=== PATIENT | female | born 1955 | race Caucasian/White ===

== ENCOUNTER 2017-03-15 10:27 | Emergency (ER) | payer OTHER, MEDICARE ==
[~2017-03-15] VITALS: Ht 152.4 cm; Wt 124.3 kg
[2017-03-15 10:27] VITALS: BP 198/91; PULSE 76; RESP 17; TEMP 97.6; O2SAT 96
--- NOTE | 2017-03-15 10:27 | NUR ---
Patient to ER bed 2 to gown for evaluation. Side rails up. Report given to Brandy DURAN.
--- NOTE | 2017-03-15 10:28 | NUR ---
ER at bedside examining patient.
--- NOTE | 2017-03-15 10:28 | NUR ---
Placed on media monitor, blood pressure machine and pulse oximeter. To gown for exam. Side rails up.
[2017-03-15] MEDS ORDERED: NITROGLYCERIN 1 INCH (GM) OINT. TP ONE (10:45)
--- NOTE | 2017-03-15 11:05 | NUR ---
brought in by [facility], c/o chest pain radiating to left arm ,intermittent,sharp pain for three days. awake,alerted,oriented x4. chest pain 8/. wearing a boot brace to left leg,had left ankle fx due to the fall 4 months ago.
--- NOTE | 2017-03-15 11:07 | NUR ---
transported to radiology for [facility] via [facility].
[2017-03-15 11:09] LABS: BASOPHILS % (AUTO) 0.4 % (0.0-2.0); EOSINOPHILS # (AUTO) 0.2 K/uL (0.0-0.4); EOSINOPHILS % (AUTO) 2.1 % (0.0-4.0); HEMATOCRIT 32.3 % (36-48); HEMOGLOBIN 10.4 g/dL (12.0-16.0); LYMPHOCYTES % (AUTO) 19.2 % (20.5-51.5); MEAN CORPUSCULAR HEMOGLOBIN 26 pg (27-31); MEAN CORPUSCULAR HGB CONC 32 % (32-36); MEAN CORPUSCULAR VOLUME 81 fL (79.0-98.0); MONOCYTES # (AUTO) 0.7 K/uL (0.0-1.0); MONOCYTES % (AUTO) 6.2 % (1.7-9.3); NEUTROPHILS # (AUTO) 7.7 K/uL (1.8-7.7); NEUTROPHILS % (AUTO) 72.1 % (40.0-70.0); PLATELET COUNT (AUTO) 284 K/uL (130-430); RED CELL DISTRIBUTION WIDTH 16.7 % (9.0-15.0); WHITE BLOOD COUNT (AUTO) 10.6 K/uL (4.8-10.8)
[2017-03-15 11:19] LABS: PROTHROMBIN TIME 10.4 SECS (9.5-12.5)
[2017-03-15 11:20] LABS: CREATININE 1.03 mg/dL (0.55-1.30); POTASSIUM 3.7 mmol/L (3.5-5.1)
[2017-03-15 11:25] LABS: ALBUMIN 3.1 g/dL (3.4-4.8); TOTAL BILIRUBIN 0.2 mg/dL (0.0-1.0); TOTAL PROTEIN, SERUM 7.4 g/dL (6.4-8.3)
--- NOTE | 2017-03-15 12:40 | NUR ---
assisted pt using bedpan,urine collected and sent to lab
--- NOTE | 2017-03-15 12:52 | NUR ---
blood pressure 203/96, Dr dejesus informed,no order
[2017-03-15 13:09] LABS: BILIRUBIN,URINE NEGATIVE (NEGATIVE); BLOOD, URINE NEGATIVE (NEGATIVE); CLARITY/URINE CLEAR (CLEAR); COLOR,URINE YELLOW (YELLOW); GLUCOSE,URINE TRACE (NEGATIVE); KETONES,URINE NEGATIVE (NEGATIVE); LEUKOCYTE ESTERASE ,URINE NEGATIVE (NEGATIVE); NITRITE, URINE NEGATIVE (NEGATIVE); PROTEIN URINE NEGATIVE (NEGATIVE); UROBILINOGEN,URINE 0.2 (0.2-1.0)
--- NOTE | 2017-03-15 13:55 | NUR ---
TRANSFER INFORMATION: [facility] ACCEPTING PHONE NUMBER TO GIVE [facility]=[phone] [facility] WILL BE HERE AT [id number]
--- NOTE | 2017-03-15 14:38 | NUR ---
[facility]
--- NOTE | 2017-03-15 14:45 | NUR ---
Patient to be transferred to [facility]. Is being transferred due to higher level of care. Receiving facility has accepting physician and available space. ER physician has signed transfer form. Patient or responsible alliance party has agreed to transfer and signed form. Patient belongings inventoried and will be sent with patient. Copy of nursing notes, lab reports, EKG, Physicians Orders and X-rays to be sent with patient. Report called to kevin stevens at receiving facility. Ambulance service has been called for transfer. ETA is 1500.
[2017-03-15 15:00] VITALS: BP 141/89; PULSE 73; RESP 17; TEMP 98.3; O2SAT 99
== END 2017-03-15 15:00 | disposition short-term general hospital (02) ==
LOC: SED 10:27
DX: R07.9 Chest pain, unspecified (principal); R06.02 Shortness of breath; J45.909 Unspecified asthma, uncomplicated; F03.90 Unspecified dementia, unspecified severity, without behavioral disturbance, psychotic disturbance, mood disturbance, and anxiety; E11.9 Type 2 diabetes mellitus without complications; I10 Essential (primary) hypertension
CPT/HCPCS: 36415; 71010; 74000-TC; 80053; 81003; 83880; 84484; 85025; 85610-TC; 93005; 99285